=== PATIENT | male | born 1990 | race Asian ===

== ENCOUNTER 2022-03-07 18:00 | Inpatient (IN) | payer MEDICAID ==
[~2022-03-07] VITALS: Ht 175.3 cm; Wt 120.7 kg
[2022-03-07] MEDS ORDERED: KETOROLAC 30MG/ML VIAL IV STA (23:43)
[2022-03-07] MEDS ORDERED: SODIUM CHLORIDE 0.9% 1,000 ML IV ONE (23:45)
[2022-03-08] VITALS (8 sets, daily range): BP systolic 132–154; BP diastolic 67–100
[2022-03-08] MEDS ORDERED: VISCOUS LIDOCAINE 2% 15 ML UDC PO ONE
[2022-03-08] MEDS ORDERED: MAGNESIUM/ALUMINUM HYDROXIDE/SIMETHICONE 30ML UDC PO ONE
[2022-03-08 00:08] LABS: HEMATOCRIT. 50.8 % (42.0-52.0); HEMOGLOBIN. 17.2 g/dL (14.0-18.0); MEAN CORPUSCULAR HEMOGLOBIN 26.8 pg (28.0-32.0); MEAN CORPUSCULAR VOLUME 78.9 fL (80.0-94.0); PLATELET 185 x1000/uL (130-400); RED BLOOD CELL COUNT 6.43 mill/uL (4.7-6.1); RED CELL DISTRIBUTION WIDTH 14.1 % (11.6-14.6)
[2022-03-08 00:19] LABS: CHLORIDE 85 mEq/L (98-107)
[2022-03-08 00:41] LABS: ETHANOL BLOOD < 10 mg/dL
[2022-03-08] MEDS ORDERED: PIPERACILLIN/TAZOBACTAM 3.375GM/50ML PREMIX IV ONE (00:45)
[2022-03-08] MEDS ORDERED: VANCOMYCIN 1G PREMIX 200 ML IV NR (00:45)
[2022-03-08] MEDS ORDERED: PIPERACILLIN/TAZ 3.375G PREMIX 50 ML IV NR (01:00)
[2022-03-08] MEDS ORDERED: MORPHINE SULFATE 4 MG/ML CPJ (NOT FOR IM USE) IV ONE (01:15)
[2022-03-08] MEDS ORDERED: SODIUM CHLORIDE 0.9% 1000ML BAG (SEPSIS BOLUS) IV ONE (01:15)
[2022-03-08] MEDS ORDERED: ASPIRIN 81MG TABLET PO NR (01:15)
[2022-03-08] MEDS ORDERED: ONDANSETRON HCL 4MG/2ML INJ IV PRN (03:45)
[2022-03-08] MEDS ORDERED: MORPHINE SULFATE 2 MG/ML CPJ (NOT FOR IM USE) IV PRN (03:45)
[2022-03-08] MEDS ORDERED: NALOXONE HCL 0.4MG/ML VIAL IV PRN (03:45)
[2022-03-08 04:41] LABS: PLATELET ESTIMATE NORMAL
[2022-03-08] MEDS: DEXT 5%/0.45% NACL KCL 20MEQ/L 1,000 ML IV SCH ×2 (09:08→19:00)
[2022-03-08] MEDS: MORPHINE SULFATE 2 MG/ML CPJ (NOT FOR IM USE) IV PRN ×4 (09:09→22:08)
[2022-03-08] MEDS: PIPERACILLIN/TAZOBACTAM 3.375 G in DEXTROSE 5% WATER 50 ML IV SCH ×2 (09:09→14:25)
[2022-03-08] MEDS: PANTOPRAZOLE SODIUM 40 MG/VIAL IV SCH (09:10)
[2022-03-08 11:12] LABS: HEMATOCRIT 42.9 % (42.0-52.0); HEMOGLOBIN 14.4 g/dL (14.0-18.0); MEAN CORPUSCULAR HEMOGLOBIN 26.6 pg (28.0-32.0); MEAN CORPUSCULAR VOLUME 79.2 fL (80.0-94.0); PLATELET 138 x1000/uL (130-400); RED BLOOD CELL COUNT 5.42 mill/uL (4.7-6.1)
[2022-03-08 11:33] LABS: CHLORIDE 94 mEq/L (98-107)
[2022-03-08 12:45] LABS: AMYLASE 493 IU/L (25-115)
[2022-03-08] MEDS: ONDANSETRON HCL 4MG/2ML INJ IV PRN (12:56)
[2022-03-08] MEDS: LIDOCAINE 5% PATCH TOP SCH (12:57)
[2022-03-08] MEDS: CHLORPROMAZINE HCL 25MG/1ML AMP IM PRN ×2 (13:23→21:31)
[2022-03-08] MEDS: CEFTRIAXONE 2 G in DEXTROSE 5% WATER 50 ML IV SCH (21:31)
[2022-03-08] MEDS: METRONIDAZOLE 500 MG PREMIX 100 ML IV SCH (22:11)
[2022-03-09] VITALS (8 sets, daily range): BP systolic 125–154; BP diastolic 75–99
[2022-03-09] MEDS: MORPHINE SULFATE 2 MG/ML CPJ (NOT FOR IM USE) IV PRN ×3 (02:28→11:16)
[2022-03-09 05:52] LABS: HEMATOCRIT. 39.5 % (42.0-52.0); HEMOGLOBIN. 13.3 g/dL (14.0-18.0); MEAN CORPUSCULAR HEMOGLOBIN 26.8 pg (28.0-32.0); MEAN CORPUSCULAR VOLUME 79.3 fL (80.0-94.0); MEAN PLATELET VOLUME 9.2 fl (7.4-10.4); PLATELET 156 x1000/uL (130-400); RED BLOOD CELL COUNT 4.98 mill/uL (4.7-6.1); RED CELL DISTRIBUTION WIDTH 14.1 % (11.6-14.6)
[2022-03-09] MEDS: DEXT 5%/0.45% NACL KCL 20MEQ/L 1,000 ML IV SCH ×2 (05:56→14:46)
[2022-03-09] MEDS: METRONIDAZOLE 500 MG PREMIX 100 ML IV SCH ×3 (05:57→21:01)
[2022-03-09 06:07] LABS: PROTHROMBIN TIME 10.5 sec (9.6-11.0)
[2022-03-09 06:11] LABS: CHLORIDE 95 mEq/L (98-107)
[2022-03-09 06:28] LABS: HEPATITIS B SURFACE ANTIGEN NEGATIVE
[2022-03-09] MEDS: PANTOPRAZOLE SODIUM 40 MG/VIAL IV SCH (09:11)
[2022-03-09] MEDS: ONDANSETRON HCL 4MG/2ML INJ IV PRN (09:11)
[2022-03-09] MEDS: LIDOCAINE 5% PATCH TOP SCH (09:16)
[2022-03-09 11:04] LABS: PLATELET ESTIMATE NORMAL
[2022-03-09] MEDS: CHLORPROMAZINE HCL 25MG/1ML AMP IM PRN (14:45)
[2022-03-09] MEDS: MORPHINE SULFATE 4 MG/ML CPJ (NOT FOR IM USE) IV PRN ×4 (15:35→23:58)
[2022-03-09] MEDS: CEFTRIAXONE 2 G in DEXTROSE 5% WATER 50 ML IV SCH (20:59)
[2022-03-10] MEDS: CHLORPROMAZINE HCL 25MG/1ML AMP IM PRN ×3 (00:23→16:07)
[2022-03-10] MEDS: MORPHINE SULFATE 4 MG/ML CPJ (NOT FOR IM USE) IV PRN ×6 (03:15→20:06)
[2022-03-10] MEDS: DEXT 5%/0.45% NACL KCL 20MEQ/L 1,000 ML IV SCH ×3 (03:16→15:56)
[2022-03-10] MEDS: METRONIDAZOLE 500 MG PREMIX 100 ML IV SCH ×3 (05:26→21:06)
[2022-03-10 06:03] LABS: HEMATOCRIT. 41.6 % (42.0-52.0); MEAN CORPUSCULAR HEMOGLOBIN 26.9 pg (28.0-32.0); MEAN CORPUSCULAR VOLUME 79.8 fL (80.0-94.0); PLATELET 228 x1000/uL (130-400); RED BLOOD CELL COUNT 5.21 mill/uL (4.7-6.1); RED CELL DISTRIBUTION WIDTH 14.4 % (11.6-14.6)
[2022-03-10 07:10] LABS: PLATELET ESTIMATE NORMAL
[2022-03-10] MEDS: ONDANSETRON HCL 4MG/2ML INJ IV PRN (07:43)
[2022-03-10] MEDS: LIDOCAINE 5% PATCH TOP SCH (09:00)
[2022-03-10 10:00] VITALS: BP 141/102
[2022-03-10 10:25] LABS: CHLORIDE 97 mEq/L (98-107)
[2022-03-10] MEDS: PANTOPRAZOLE SODIUM 40 MG/VIAL IV SCH (10:45)
[2022-03-10 12:00] VITALS: BP 141/93
[2022-03-10 14:00] VITALS: BP 153/93
[2022-03-10] MEDS ORDERED: LOPERAMIDE 2MG/15ML UDC PO NR (14:15)
[2022-03-10] MEDS ORDERED: LOPERAMIDE 2MG/15ML UDC PO PRN (14:15)
[2022-03-10 16:00] VITALS: BP 148/92
[2022-03-10 18:00] VITALS: BP 140/88
[2022-03-10] MEDS: CEFTRIAXONE 2 G in DEXTROSE 5% WATER 50 ML IV SCH (21:05)
[2022-03-11] VITALS (8 sets, daily range): BP systolic 129–147; BP diastolic 75–92
[2022-03-11] MEDS: DEXT 5%/0.45% NACL KCL 20MEQ/L 1,000 ML IV SCH ×3 (00:01→16:21)
[2022-03-11] MEDS: CHLORPROMAZINE HCL 25MG/1ML AMP IM PRN ×3 (00:14→17:52)
[2022-03-11] MEDS: MORPHINE SULFATE 4 MG/ML CPJ (NOT FOR IM USE) IV PRN ×7 (01:35→22:24)
[2022-03-11] MEDS: METRONIDAZOLE 500 MG PREMIX 100 ML IV SCH ×3 (06:15→21:35)
[2022-03-11 08:03] LABS: HEMATOCRIT. 39.6 % (42.0-52.0); HEMOGLOBIN. 13.2 g/dL (14.0-18.0); MEAN CORPUSCULAR HEMOGLOBIN 26.8 pg (28.0-32.0); MEAN CORPUSCULAR VOLUME 80.8 fL (80.0-94.0); PLATELET 275 x1000/uL (130-400); RED CELL DISTRIBUTION WIDTH 14.5 % (11.6-14.6)
[2022-03-11 08:07] LABS: CHLORIDE 97 mEq/L (98-107)
[2022-03-11 08:29] LABS: AMYLASE 62 IU/L (25-115); PHOSPHORUS 1.7 mg/dL (2.5-4.9)
[2022-03-11] MEDS: LIDOCAINE 5% PATCH TOP SCH (08:37)
[2022-03-11] MEDS: LACTOBACILLUS GG CAPSULE PO SCH (08:39)
[2022-03-11] MEDS: PANTOPRAZOLE SODIUM 40 MG/VIAL IV SCH (09:00)
[2022-03-11] MEDS ORDERED: SODIUM PHOS,M-BASIC-D-BASIC 30 MM in DEXT 5% WATER 500 ML IV NR (17:00)
[2022-03-11] MEDS: CEFTRIAXONE 2 G in DEXTROSE 5% WATER 50 ML IV SCH (21:34)
[2022-03-12] VITALS (9 sets, daily range): BP systolic 128–148; BP diastolic 78–98
[2022-03-12] MEDS: MORPHINE SULFATE 4 MG/ML CPJ (NOT FOR IM USE) IV PRN ×9 (00:33→23:54)
[2022-03-12] MEDS: METRONIDAZOLE 500 MG PREMIX 100 ML IV SCH ×3 (05:42→21:04)
[2022-03-12] MEDS: DEXT 5%/0.45% NACL KCL 20MEQ/L 1,000 ML IV SCH ×3 (05:42→23:55)
[2022-03-12 05:58] LABS: HEMATOCRIT. 39.6 % (42.0-52.0); HEMOGLOBIN. 13.2 g/dL (14.0-18.0); MEAN CORPUSCULAR HEMOGLOBIN 26.5 pg (28.0-32.0); MEAN CORPUSCULAR VOLUME 79.8 fL (80.0-94.0); MEAN PLATELET VOLUME 8.4 fl (7.4-10.4); PLATELET 330 x1000/uL (130-400); RED BLOOD CELL COUNT 4.96 mill/uL (4.7-6.1); RED CELL DISTRIBUTION WIDTH 14.2 % (11.6-14.6)
[2022-03-12 06:16] LABS: CHLORIDE 95 mEq/L (98-107)
[2022-03-12 06:23] LABS: PHOSPHORUS 3.7 mg/dL (2.5-4.9)
[2022-03-12] MEDS: LIDOCAINE 5% PATCH TOP SCH (09:58)
[2022-03-12] MEDS: CHLORPROMAZINE HCL 25MG/1ML AMP IM PRN ×2 (09:58→18:50)
[2022-03-12] MEDS: PANTOPRAZOLE SODIUM 40 MG/VIAL IV SCH (09:58)
[2022-03-12] MEDS: LACTOBACILLUS GG CAPSULE PO SCH (09:58)
[2022-03-12 12:59] LABS: PLATELET ESTIMATE NORMAL
[2022-03-12 14:42] LABS: PLATELET ESTIMATE NORMAL
[2022-03-12] MEDS: CEFTRIAXONE 2 G in DEXTROSE 5% WATER 50 ML IV SCH (21:04)
[2022-03-13] VITALS (12 sets, daily range): BP systolic 126–157; BP diastolic 76–100
[2022-03-13] MEDS: MORPHINE SULFATE 4 MG/ML CPJ (NOT FOR IM USE) IV PRN ×8 (02:21→23:39)
[2022-03-13] MEDS: METRONIDAZOLE 500 MG PREMIX 100 ML IV SCH ×3 (05:48→21:12)
[2022-03-13 06:36] LABS: HEMATOCRIT. 39.1 % (42.0-52.0); MEAN CORPUSCULAR HEMOGLOBIN 27.1 pg (28.0-32.0); MEAN CORPUSCULAR VOLUME 81.3 fL (80.0-94.0); MEAN PLATELET VOLUME 8.3 fl (7.4-10.4); PLATELET 326 x1000/uL (130-400); RED BLOOD CELL COUNT 4.81 mill/uL (4.7-6.1)
[2022-03-13] MEDS: DEXT 5%/0.45% NACL KCL 20MEQ/L 1,000 ML IV SCH ×3 (06:43→19:35)
[2022-03-13] MEDS: CHLORPROMAZINE HCL 25MG/1ML AMP IM PRN ×2 (07:54→18:06)
[2022-03-13] MEDS: LIDOCAINE 5% PATCH TOP SCH (09:00)
[2022-03-13] MEDS: PANTOPRAZOLE SODIUM 40 MG/VIAL IV SCH (09:38)
[2022-03-13 10:24] LABS: PLATELET ESTIMATE NORMAL
[2022-03-13] MEDS: LACTOBACILLUS GG CAPSULE PO SCH (11:33)
[2022-03-13 11:36] LABS: CHLORIDE 93 mEq/L (98-107)
[2022-03-13 11:52] LABS: PHOSPHORUS 3.6 mg/dL (2.5-4.9)
[2022-03-13] MEDS: METOCLOPRAMIDE HCL 10MG/2ML VIAL IV SCH ×2 (17:56→23:40)
[2022-03-13] MEDS: CEFTRIAXONE 2 G in DEXTROSE 5% WATER 50 ML IV SCH (20:30)
[2022-03-14] MEDS: MORPHINE SULFATE 4 MG/ML CPJ (NOT FOR IM USE) IV PRN ×3 (02:18→08:18)
[2022-03-14] MEDS: CHLORPROMAZINE HCL 25MG/1ML AMP IM PRN (02:25)
[2022-03-14] MEDS: DEXT 5%/0.45% NACL KCL 20MEQ/L 1,000 ML IV SCH ×3 (04:30→15:39)
[2022-03-14] MEDS: METOCLOPRAMIDE HCL 10MG/2ML VIAL IV SCH ×3 (06:28→17:37)
[2022-03-14] MEDS: METRONIDAZOLE 500 MG PREMIX 100 ML IV SCH ×3 (06:29→22:28)
[2022-03-14 07:41] LABS: HEMATOCRIT. 35.2 % (42.0-52.0); HEMOGLOBIN. 11.6 g/dL (14.0-18.0); MEAN CORPUSCULAR HEMOGLOBIN 26.2 pg (28.0-32.0); MEAN CORPUSCULAR VOLUME 79.8 fL (80.0-94.0); MEAN PLATELET VOLUME 7.9 fl (7.4-10.4); PLATELET 348 x1000/uL (130-400); RED BLOOD CELL COUNT 4.41 mill/uL (4.7-6.1)
[2022-03-14 08:00] VITALS: BP 134/86
[2022-03-14] MEDS: LACTOBACILLUS GG CAPSULE PO SCH (08:18)
[2022-03-14] MEDS: PANTOPRAZOLE SODIUM 40 MG/VIAL IV SCH (08:18)
[2022-03-14] MEDS: LIDOCAINE 5% PATCH TOP SCH (08:32)
[2022-03-14] MEDS: HYDROCODONE/ACETAMINOPHEN 5/325MG TABLET PO PRN ×4 (10:03→23:05)
[2022-03-14 11:14] LABS: CHLORIDE 94 mEq/L (98-107)
[2022-03-14 11:29] LABS: PHOSPHORUS 4.1 mg/dL (2.5-4.9)
[2022-03-14 12:00] VITALS: BP 138/87
[2022-03-14 13:39] LABS: PLATELET ESTIMATE NORMAL
[2022-03-14] MEDS: ONDANSETRON HCL 4MG/2ML INJ IV PRN (14:16)
[2022-03-14 16:00] VITALS: BP 142/78
[2022-03-14 20:00] VITALS: BP 148/91
[2022-03-14] MEDS: CEFTRIAXONE 2 G in DEXTROSE 5% WATER 50 ML IV SCH (21:26)
[2022-03-14 23:52] VITALS: BP 143/88
[2022-03-15 03:12] VITALS: BP 139/83
[2022-03-15] MEDS: HYDROCODONE/ACETAMINOPHEN 5/325MG TABLET PO PRN ×5 (03:14→22:28)
[2022-03-15] MEDS: DEXT 5%/0.45% NACL KCL 20MEQ/L 1,000 ML IV SCH ×2 (03:16→22:08)
[2022-03-15] MEDS: METRONIDAZOLE 500 MG PREMIX 100 ML IV SCH ×3 (05:31→22:08)
[2022-03-15 06:57] LABS: HEMATOCRIT. 32.2 % (42.0-52.0); HEMOGLOBIN. 10.8 g/dL (14.0-18.0); MEAN CORPUSCULAR HEMOGLOBIN 26.8 pg (28.0-32.0); MEAN CORPUSCULAR VOLUME 79.7 fL (80.0-94.0); MEAN PLATELET VOLUME 7.8 fl (7.4-10.4); PLATELET 332 x1000/uL (130-400); RED BLOOD CELL COUNT 4.04 mill/uL (4.7-6.1)
[2022-03-15 08:00] VITALS: BP 144/90
[2022-03-15] MEDS: LIDOCAINE 5% PATCH TOP SCH (09:00)
[2022-03-15] MEDS: PANTOPRAZOLE SODIUM 40 MG/VIAL IV SCH (09:06)
[2022-03-15] MEDS: LACTOBACILLUS GG CAPSULE PO SCH (09:06)
[2022-03-15] MEDS: METOCLOPRAMIDE HCL 10MG/2ML VIAL IV SCH (09:06)
[2022-03-15 11:23] LABS: CHLORIDE 95 mEq/L (98-107); PHOSPHORUS 4.2 mg/dL (2.5-4.9)
[2022-03-15 12:00] VITALS: BP 151/88
[2022-03-15 14:55] LABS: PLATELET ESTIMATE NORMAL
[2022-03-15 16:00] VITALS: BP 154/97
[2022-03-15 20:00] VITALS: BP 155/87
[2022-03-15] MEDS: CEFTRIAXONE 2 G in DEXTROSE 5% WATER 50 ML IV SCH (22:07)
[2022-03-16] VITALS: BP 144/82
[2022-03-16] MEDS: MEROPENEM 1,000 MG in SODIUM CHLORIDE 0.9% 100 ML IV SCH ×3 (01:42→15:12)
[2022-03-16] MEDS: HYDROCODONE/ACETAMINOPHEN 5/325MG TABLET PO PRN ×2 (03:35→08:59)
[2022-03-16 04:00] VITALS: BP 146/96
[2022-03-16 06:41] LABS: HEMOGLOBIN. 10.4 g/dL (14.0-18.0); MEAN CORPUSCULAR HEMOGLOBIN 26.9 pg (28.0-32.0); MEAN CORPUSCULAR VOLUME 79.8 fL (80.0-94.0); MEAN PLATELET VOLUME 7.5 fl (7.4-10.4); PLATELET 361 x1000/uL (130-400); RED BLOOD CELL COUNT 3.89 mill/uL (4.7-6.1); RED CELL DISTRIBUTION WIDTH 13.8 % (11.6-14.6)
[2022-03-16 07:30] LABS: CHLORIDE 100 mEq/L (98-107)
[2022-03-16 08:15] VITALS: BP 145/85
[2022-03-16] MEDS: LIDOCAINE 5% PATCH TOP SCH (09:00)
[2022-03-16] MEDS: METOCLOPRAMIDE HCL 10MG/2ML VIAL IV SCH (09:00)
[2022-03-16] MEDS: PANTOPRAZOLE SODIUM 40 MG/VIAL IV SCH (09:54)
[2022-03-16] MEDS: LACTOBACILLUS GG CAPSULE PO SCH (09:54)
[2022-03-16 12:00] VITALS: BP 148/91
[2022-03-16 16:00] VITALS: BP 166/106
[2022-03-16] MEDS ORDERED: NALOXONE HCL 0.4MG/ML VIAL IV PRN (17:30)
[2022-03-16] MEDS ORDERED: CLONIDINE 0.1MG TABLET PO PRN (17:30)
[2022-03-16 17:33] LABS: PLATELET ESTIMATE NORMAL
== END 2022-03-16 19:00 | disposition left against medical advice (07) | DRG 720 ==
LOC: ER 18:00 → MICUSO 03-08 01:22 → 5EST 03-08 04:44 → 8WST 03-13 22:47
PROVIDERS: ADMIT Internal Medicine; ATTEND Internal Medicine
DX: A41.9 Sepsis, unspecified organism (principal); K85.10 Biliary acute pancreatitis without necrosis or infection; R18.8 Other ascites; E87.1 Hypo-osmolality and hyponatremia; E83.51 Hypocalcemia; K76.0 Fatty (change of) liver, not elsewhere classified; K80.20 Calculus of gallbladder without cholecystitis without obstruction; K82.8 Other specified diseases of gallbladder; R77.8 Other specified abnormalities of plasma proteins; R73.9 Hyperglycemia, unspecified; R65.20 Severe sepsis without septic shock; E66.9 Obesity, unspecified; Z68.39 Body mass index [BMI] 39.0-39.9, adult
CPT/HCPCS: 36415; 71045; 72131; 72148; 74176; 74181; 76604; 76700; 80048; 80053; 80061; 80076; 80320; 82150; 82248; 83605; 83735; 84100; 84145; 84484; 85025; 85027; 86705; 86709; 86803; 87015; 87045; 87340; 87427; 87449; 89055; 93005; 93306; 97162; 99291; C1893; C9113; J0696; J1885; J2185; J2270; J2405; J2543; J2765; J3230; J3370; J3490; J7030; J7050; J7060; G0480